=== PATIENT | female | born 2000 | race Caucasian/White ===

== ENCOUNTER 2024-05-04 23:58 | Outpatient (BNV) | payer MEDICAID, SELFPAY | END 2024-05-05 11:31 | PROVIDERS: Admitting Provider Psychiatry & Neurology Psychiatry; Visit Provider Radiology Diagnostic Radiology | DX: S09.90XA Unspecified injury of head, initial encounter (principal) | CPT/HCPCS: 70450 ==

== ENCOUNTER 2024-05-04 23:58 | Inpatient (IN) | payer OTHER, SELFPAY ==
--- NOTE | ~2024-05-04 | CT_ITS ---
EXAMINATION: CT HEAD WITHOUT CONTRAST CLINICAL INFORMATION: recent concussion reported COMPARISON: None available. TECHNIQUE: Contiguous axial imaging was performed from the skull base to vertex without intravenous administration of contrast. This CT examination was performed using dose optimization techniques as appropriate, variously including the following: *Automated exposure control *Adjustment of mA and/or kV according to patient size (this includes techniques or standardized protocols for targeted exams where dose is matched to indication/reason for exam; i.e. extremities or head) *Use of iterative reconstruction technique DLP: 674 mGy-cm FINDINGS: No acute intracranial hemorrhage, mass effect, midline shift, hydrocephalus or herniation. Bernardo-white matter differentiation is normal. Posterior cranial fossa contents demonstrated no acute intracranial hemorrhage. Sellar/suprasellar region demonstrated no gross masses or hemorrhage. No hematoma is in the intraconal or extraconal compartments of the orbits. Traumatic deformities likely old in the nasal bones. Polypoid mucosal thickening, right maxillary sinus. Mucosal thickening, right ethmoid cells. Tympanic cavities and mastoid cells are aerated. The bony calvarium is intact and There is a 9 mm low-density nodule measuring 12 Hounsfield units just peripheral to the right parotid gland and inferior to the right ear. CT/CT head/brain wo IV con IMPRESSION: No acute intracranial hemorrhage or acute brain abnormality. Traumatic deformities nasal bones likely old. Probable small sebaceous cyst, right parotid compartment. . Electronically signed by: Dagoberto Ku MD 05/05/2024 12:06 PM EDT
[2024-05-05 00:30] VITALS: BP 170/69; PULSE 95; RESP 20; TEMP 37.7; O2SAT 97
[2024-05-05 01:27] VITALS: BMI 29.8
--- NOTE | 2024-05-05 06:14 | PC.ADMIT ---
Lisandra was admitted to at 0015, as a CV on 15 minute checks. She arrive via stretcher but is independent when walking. Her skin check revealed a superficial closed cut/scratch on her left middle finger. She has right hand soreness, which she thinks is due to pounding on something, I don't know, I blacked out. She reports generalized pruritis but states this may be because I haven't showered. This writer technical publications observed no rash or redness. She is admitted as having adjustment disorder mixed with anxiety and depression. She is homeless at this time. She was taken to the hospital by police after threatening someone with a stick, and making paranoid statements. She is disorganized with pressured, excessive, tangential speech. She continues to be paranoid, stating that someone has been stalking her since I was in [place]. She reports short binge of drinking, ending 05/03/2024. She is not showing signs of alcohol withdrawal. Her toxicology screen was positive for Benzodiazepines and THC. She reports she had ativan at the [facility]. She smokes up to a pack a day, but wants to quit and has not smoked since 05/03/24. She is willing to utilize NRT. She is willing to take the flu vaccine. She has no known allergies. She denies SI, HI, AVH, but appears highly anxious and depressed; she is weepy at times. She stated I just can't keep going like this. I really need help and I need someplace to stay.
--- NOTE | 2024-05-05 07:22 | PHA.MEDREC ---
Pharmacy Consult ? Medication Reconciliation Pharmacy has completed the medication reconciliation. Reviewed med rec done by nursing, there are no pharmacy claims, matching no home meds reported.
[2024-05-05 08:00] VITALS: BP 137/62; PULSE 67; RESP 16; TEMP 36.6; O2SAT 98
--- NOTE | 2024-05-05 09:21 | HO.PM.IMCN ---
History of Present Illness Data of Consult Service Date: 05/05/24 Requesting physician: Kris Carrillo Primary Care Provider: Unknown Physician HPI Reason for consult: medical H&P 23 year old female without any significant past medical history admitted to adult psychiatry from [facility] with consult placed to hospitalist service for medical H&P. The patient is difficult to ascertain history from as speech is pressured, disorganized and tangential speech and fixated on something medical being the cause of her mental status. She is concerned about a brain tumor and diabetes primarily. She reports binge drinking and reports having 10 nips and blacking out. She wants to know why she blacked out. Again concerned about diabetes or brain tumor. Report has family history of brain tumor in her uncle. She reports elevated blood pressures when she is very stressed with associated headaches and vision changes, unable to elaborate. Currently reports what seems consistent with a tension headache. She states she often gets headaches in the R parietal region. She feels agitated. She feels like she has diabetes because when she is finished eating she feels dizzy. Denies other positional dizziness. Unable to fully elicit reliable ROS secondary to patient's mental status however theses seem to be her primary concerns. While in the ED, VSS. Hematology studies significant for WBC 11.8 but no other significant abnormalities. Renal function normal, electrolyte levels normal. Glucose slightly elevated 106 but was not performed fasting. Liver function tests within normal limits. Ethyl alcohol level undetectable. Urine test negative. Urine tox screen positive for benzodiazepines and cannabinoids. EKG did show sinus rhythm with sinus arrhythmia shortened MS interval of 102 ms. HR 70. She did have head ct performed without acute abnormality. There is a probable small sebaceous cyst of the parotid gland. [facility] Medical History (Updated 05/05/24 @ 17:47 by CHANTELL Lynn) Cyst of right parotid gland Social History Household Members: None Housing: Homeless Do you presently have visiting nurse or other home services: No Patient Tobacco Use Status: Former Tobacco user Tobacco use type: Cigarette Cigarettes Per Day: 10 Smoked in Last 30 Days: Yes e-Cigarette/Vaping Use: Former Use Patient Interested in Nicotine Replacement: Yes Patient Given Instructions on How to Stop Smoking: Yes Date Education Initiated: 05/05/24 Second Hand Smoke Exposure: Yes Use of substances other than those prescribed or required for medical reasons: Yes Substance Use Type: Marijuana Substance Use Frequency: Weekly Last Used Substance: Unknown Currently Displaying Signs/Symptoms of Drug Intoxication Withdrawal: No Any prior treatment program specific to substance use: No Have you been hit, kicked, punched, or otherwise hurt by someone within the past year? If so, by whom?: No Do you feel safe in your current relationship?: No Is there a partner from a previous relationship who is making you feel unsafe now?: No Advance Directives: No Advance Directives Information Provided: Yes Do you have a plan to hurt others: No Plan Recently lost weight without trying: Unsure Patient : No : No Poor oral hygiene: No Meds Allergies Allergy/AdvReac Type Severity Reaction Status Date / Time No Known Allergies Allergy Verified 05/05/24 01:23 Active Medications: Current Medications Acetaminophen (Acetaminophen 325 Mg Tablet) 650 mg PO Q6H PRN PRN Reason: Headache/Pain, Scale 1-10 Al Hydroxide/Mg Hydroxide (Magnesium Hydrox/Alum Hydrox 30 Ml Oral.Susp) 30 ml PO Q6H PRN PRN Reason: Heartburn/Nausea Hydroxyzine HCl (Hydroxyzine Hcl 25 Mg Tablet) 25 mg PO Q6H PRN PRN Reason: mild anxiety Lorazepam (Lorazepam 1 Mg Tablet) 1 mg PO Q2H PRN PRN Reason: CIWA 8-11 Lorazepam (Lorazepam 1 Mg Tablet) 2 mg PO Q2H PRN PRN Reason: CIWA 12-15 Lorazepam (Lorazepam 1 Mg Tablet) 3 mg PO Q2H PRN PRN Reason: CIWA > 15, and call Magnesium Hydroxide (Milk Of Magnesia 30 Ml Oral.Susp) 30 ml PO DAILY PRN PRN Reason: Constipation Nicotine Polacrilex (Nicotine Polacrilex 2 Mg Gum) 4 mg BUCCAL Q2H PRN PRN Reason: Nicotine Cravings Thiamine HCl (Thiamine Hcl 100 Mg Tablet) 100 mg PO DAILY PHILLIP Last Admin: 05/05/24 08:59 Dose: Not Given Trazodone HCl (Trazodone Hcl 50 Mg Tablet) 50 mg PO BEDTIME MRX1 PRN PRN Reason: Insomnia Home Medications ?Medication ?Instructions ?Recorded ?Confirmed ?Last Taken ?Type No Known Home Meds 05/05/24 05/05/24 Unknown History Physical Exam Vital Signs and Narrative: Vital Signs: Last Vital Signs Temp 99.9 F 05/05/24 00:30 Pulse 95 05/05/24 00:30 Resp 20 05/05/24 00:30 BP 170/69 H 05/05/24 00:30 Pulse Ox 97 05/05/24 00:30 O2 Del Method Room Air 05/05/24 00:30 BMI result Body Mass Index 14.7 Constitutional - Awake and Alert, No apparent distress Eyes - PERRLA, EOMI Neck - Pea sized mass overlying the right parotid gland Cardiovascular - S1S2, RRR, No edema Respiratory - Normal lung expansion, Normal respiratory effort, No respiratory distress, CTA bilaterally Gastrointestinal - NT / ND; +BS; No rebound or guarding Extremities - no calf tenderness bilaterally, no swelling Musculoskeletal - Normal inspection, normal ROM Skin - Warm/Dry Neurological - Alert & oriented x3, CN II-XII in tact, 5/5 strength BUE and BLE Psychological - disorganized/pressured speech, tangential Assessment and Plan (1) Routine medical exam: Status: Acute Plan 23 year old female without any significant past medical history admitted to adult psychiatry from [facility] with consult placed to hospitalist service for medical H&P. #Vivienne - plan per psychiatry #Elevated blood pressures -no diagnosis of htn. Likely r/t anxiety and agitation -Recommend monitoring bp and managing the above -would not recommend antihypertensive at this time #AUD/Binge drinking -monitor on ciwa -discussed reasons for black out but she continues to perseverant on why it occurred #Headache -tension type. Tylenol prn Patient is fixated on medical causes of mental status, specifically a brain tumor and diabetes -check hgb a1c. Attempted to reassure patient, doubt she has diabetes -Head CT ordered by psychiatry showing parotid gland cyst. This is most likely benign in nature and would not be affected current mental state. Patient can follow up outpt or can pursue ultrasound vs MR (ultrasound would be preferred over MR but either are appropriate) if she has no outpt follow up. There are no brain tumors on ct. Findings discussed with patient. Recommend re-weighing patient. Patient's body habitus is not consistent wtih BMI 14.7. If this is accurate, recommend nutrition consult Thank you for allowing me to participate in this consult. Signing off at this time. Please do not hesitate to call for further questions or for any acute medical issues.
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
[2024-05-05 13:14] LABS: HCG Quantitative < 2 mIU/mL
[2024-05-05] MEDS: LORazepam 1 MG TABLET PO (15:14)
--- NOTE | 2024-05-05 15:52 | MHC.RECOVRN ---
Received Addiction Medicine consult for alcohol use disorder. Chart reviewed. Awaiting provider documentation. Will see pt 05/06. Gabi Haynes APRN, aware.
[2024-05-05 20:00] VITALS: BP 141/87; PULSE 63; TEMP 36.7; O2SAT 98
[2024-05-06 07:54] VITALS: BP 119/58; PULSE 102; TEMP 36.8; O2SAT 98
[2024-05-06 08:25] LABS: Estimated Average Glucose 105 mg/dL; Hemoglobin A1c % 5.3 % (<6.0)
[2024-05-06 08:42] LABS: Cholesterol 153 mg/dL (<200); HDL Cholesterol 57 mg/dL (>40); LDL Cholesterol Calculated 83 mg/dL (<100); Triglycerides 69 mg/dL (<150)
[2024-05-06 09:00] LABS: Free T4 (Free Thyroxine) 0.88 ng/dL (0.71-1.85); Thyroid Stimulating Hormone 1.59 uIU/mL (0.32-4.0)
[2024-05-06 09:02] LABS: Folate 9.6 ng/mL (> or = 4.0); Vitamin B12 424 pg/mL (200-900)
--- NOTE | 2024-05-06 09:57 | HO.PSYCHPN ---
Subjective Subjective Date of Service: 05/06/24 Reason For Visit: Adjustment Disorder, Mixed with anxiety & depress Subjective Notes: Conditional Voluntary Healthcare Proxy: No Guardianship: No Medical Problems Affecting Mental Status: No Interim History: Review of diagnostics thus far. Hospitalist team met with pt to review parotid cyst. Pt presented this information and appeart to understand. Discussed medication for clarification of thoughts and mood, rationale, how it may be of benefit. Pt is apprehensive, but agrees to a Risperdal trial. She declines a mood stabilizer trial. She states that the use of the Ouija Board in 2019 caused cramps, spotting. I would do better on a uterine blood thinner and a uterine cleanse. Gave mother's name and number to contact, Marta Head [phone]. Discussed failed trials of Gabapentin and Abilify. Medication Compliance: No Side effects from medications: No Attending Groups: Yes Review of Systems Review of Systems menses-cramping Mental Status Exam Mental Status Exam Patient Appearance: Fatigued Patient Orientation: Person, Place and Situation Level of Consciousness: Alert Patient Behavior: Talkative and Good Eye Contact Mood Description: Anxious and Apprehensive Affect Description: Anxious and Apprehensive Patient Cognition Impaired: No Ability to Follow Directions: Good Speech Pattern: Spontaneous Speech Memory Description: Episodic Impaired Delusions: Paranoid Ideation and Present Thought Process: Distracted Thought Content: positive for Circumstantial, positive for Perseveration, positive for Preoccupation and positive for Loose Associations Depressive Symptoms: Increased Anxiety Abnormal Motor Activity Signs and Symptoms: Restlessness Judgement: Poor Diagnostics Vital Signs (24Hr): Vital Signs - 24 hr 05/05/24 20:00 05/06/24 07:54 Temperature 98.1 F 98.2 F Pulse Rate 63 102 H Blood Pressure 141/87 H 119/58 L Pulse Oximetry 98 98 Oxygen Delivery Method Room Air Room Air BMI result Body Mass Index 14.7 Labs Labs: Laboratory Results - last 48 hr 05/05/24 05/06/24 12:35 07:26 Estimat Average Glucose 105 Hemoglobin A1c % 5.3 Triglycerides 69 Cholesterol 153 LDL Cholesterol, Calc 83 HDL Cholesterol 57 Vitamin B12 424 Folate 9.6 TSH 1.59 Free T4 0.88 Beta HCG, Quant < 2 Imaging Radiology Impressions: ITS Impressions Head CT 05/05/24 11:31 IMPRESSION: No acute intracranial hemorrhage or acute brain abnormality. Traumatic deformities nasal bones likely old. Probable small sebaceous cyst, right parotid compartment. . Electronically signed by: Dagoberto Ku MD 05/05/2024 12:06 PM EDT RP Medications Medications Current Medications Acetaminophen (Acetaminophen 325 Mg Tablet) 650 mg PO Q6H PRN PRN Reason: Headache/Pain, Scale 1-10 Al Hydroxide/Mg Hydroxide (Magnesium Hydrox/Alum Hydrox 30 Ml Oral.Susp) 30 ml PO Q6H PRN PRN Reason: Heartburn/Nausea Hydroxyzine HCl (Hydroxyzine Hcl 25 Mg Tablet) 25 mg PO Q6H PRN PRN Reason: mild anxiety Lorazepam (Lorazepam 1 Mg Tablet) 1 mg PO Q2H PRN PRN Reason: CIWA 8-11 Last Admin: 05/05/24 15:14 Dose: 1 mg Lorazepam (Lorazepam 1 Mg Tablet) 2 mg PO Q2H PRN PRN Reason: CIWA 12-15 Lorazepam (Lorazepam 1 Mg Tablet) 3 mg PO Q2H PRN PRN Reason: CIWA > 15, and call Magnesium Hydroxide (Milk Of Magnesia 30 Ml Oral.Susp) 30 ml PO DAILY PRN PRN Reason: Constipation Nicotine Polacrilex (Nicotine Polacrilex 2 Mg Gum) 4 mg BUCCAL Q2H PRN PRN Reason: Nicotine Cravings Olanzapine (Olanzapine 5 Mg Tablet) 5 mg PO Q4H PRN PRN Reason: agitation Thiamine HCl (Thiamine Hcl 100 Mg Tablet) 100 mg PO DAILY PHILLIP Last Admin: 05/05/24 08:59 Dose: Not Given Trazodone HCl (Trazodone Hcl 50 Mg Tablet) 50 mg PO BEDTIME MRX1 PRN PRN Reason: Insomnia Allergies Allergies Allergy/AdvReac Type Severity Reaction Status Date / Time No Known Allergies Allergy Verified 05/05/24 01:23 Assessment & Plan Assessment & Plan (1) Psychosis: Status: Acute Code(s): F29 - Unspecified psychosis not due to a substance or known physiological condition (2) Alcohol abuse: Status: Acute Code(s): F10.10 - Alcohol abuse, uncomplicated Plan Admit, CV, 15 minute checks Diagnostics to evaluate current sx. Declines meds at this time. Will continue to address Collateral Contact Encourage milieu involvement Discharge planning. 05/06: Risperdal 1 mg bid and prn Reason for continued inpatient stay Substantial Risk for: rapid decompensation Time Spent With Patient Time: Total time managing care of this patient today ____ minutes.
[2024-05-06] MEDS: Thiamine HCL 100 MG TABLET PO (09:58)
--- NOTE | 2024-05-06 13:28 | MHC.RECOVRN ---
AUDIT-C Brief Intervention Pt had positive screen for unhealthy alcohol use on admission. Attempted to meet with pt to discuss alcohol use and offer resources, pt declined.
[2024-05-06 19:50] VITALS: BP 118/60; PULSE 82; RESP 18; TEMP 37.1; O2SAT 98
[2024-05-06] MEDS: risperiDONE 1 MG TABLET PO (20:46)
[2024-05-06] MEDS: LORazepam 1 MG TABLET PO (20:46)
[2024-05-07 07:00] VITALS: BMI 29.9
[2024-05-07 08:26] VITALS: BP 110/59; PULSE 55; RESP 18; TEMP 36.3; O2SAT 96
[2024-05-07] MEDS: risperiDONE 1 MG TABLET PO ×2 (09:00→21:55)
[2024-05-07] MEDS: Thiamine HCL 100 MG TABLET PO (09:00)
[2024-05-07] MEDS: Acetaminophen 325 MG TABLET 650 MG PO (09:04)
--- NOTE | 2024-05-07 10:15 | P.PNPSI_ITS ---
Subjective Subjective Date of Service: 05/07/24 Reason For Visit: Adjustment Disorder, Mixed with anxiety & depress Subjective Notes: Conditional Voluntary Healthcare Proxy: No Guardianship: No Medical Problems Affecting Mental Status: No Interim History: Some compliance with medications. EEG team refused to do the test as pt has evangelista Reports meds make her tired and groggy. Discussed gangs, higher spirits and porn stars coming into her life. Tangential, some clarity with a few med doses. Encouarged to utilize milieu and treatment. Medication Compliance: Intermittent Side effects from medications: Yes (feelin sedation) Attending Groups: Yes Review of Systems Acute medical concerns: No Review of Systems Review of Systems menstrual cramping Mental Status Exam Mental Status Exam Patient Appearance: Fatigued Patient Orientation: Person, Place and Situation Level of Consciousness: Alert Patient Behavior: Talkative and Good Eye Contact Mood Description: Anxious and Apprehensive Affect Description: Anxious and Apprehensive Patient Cognition Impaired: No Ability to Follow Directions: Good Speech Pattern: Spontaneous Speech Memory Description: Episodic Impaired Delusions: Paranoid Ideation and Present Thought Process: Distracted Thought Content: positive for Circumstantial, positive for Perseveration, positive for Preoccupation and positive for Loose Associations Depressive Symptoms: Increased Anxiety Abnormal Motor Activity Signs and Symptoms: Restlessness Judgement: Poor Diagnostics Vital Signs (24Hr): Vital Signs - 24 hr 05/06/24 19:50 05/07/24 08:26 Temperature 98.7 F 97.4 F Pulse Rate 82 55 Respiratory Rate 18 18 Blood Pressure 118/60 110/59 L Pulse Oximetry 98 96 Oxygen Delivery Method Room Air Room Air BMI result Body Mass Index 14.7 Labs Labs: Laboratory Results - last 48 hr 05/05/24 05/06/24 12:35 07:26 Estimat Average Glucose 105 Hemoglobin A1c % 5.3 Triglycerides 69 Cholesterol 153 LDL Cholesterol, Calc 83 HDL Cholesterol 57 Vitamin B12 424 Folate 9.6 TSH 1.59 Free T4 0.88 Beta HCG, Quant < 2 Imaging Radiology Impressions: ITS Impressions Head CT 05/05/24 11:31 IMPRESSION: No acute intracranial hemorrhage or acute brain abnormality. Traumatic deformities nasal bones likely old. Probable small sebaceous cyst, right parotid compartment. . Electronically signed by: Dagoberto Ku MD 05/05/2024 12:06 PM EDT Medications Medications Current Medications Acetaminophen (Acetaminophen 325 Mg Tablet) 650 mg PO Q6H PRN PRN Reason: Headache/Pain, Scale 1-10 Last Admin: 05/07/24 09:04 Dose: 650 mg Al Hydroxide/Mg Hydroxide (Magnesium Hydrox/Alum Hydrox 30 Ml Oral.Susp) 30 ml PO Q6H PRN PRN Reason: Heartburn/Nausea Hydroxyzine HCl (Hydroxyzine Hcl 25 Mg Tablet) 25 mg PO Q6H PRN PRN Reason: mild anxiety Lorazepam (Lorazepam 1 Mg Tablet) 1 mg PO Q2H PRN PRN Reason: CIWA 8-11 Last Admin: 05/06/24 20:46 Dose: 1 mg Lorazepam (Lorazepam 1 Mg Tablet) 2 mg PO Q2H PRN PRN Reason: CIWA 12-15 Lorazepam (Lorazepam 1 Mg Tablet) 3 mg PO Q2H PRN PRN Reason: CIWA > 15, and call Magnesium Hydroxide (Milk Of Magnesia 30 Ml Oral.Susp) 30 ml PO DAILY PRN PRN Reason: Constipation Nicotine Polacrilex (Nicotine Polacrilex 2 Mg Gum) 4 mg BUCCAL Q2H PRN PRN Reason: Nicotine Cravings Olanzapine (Olanzapine 5 Mg Tablet) 5 mg PO Q4H PRN PRN Reason: agitation Risperidone (Risperidone 1 Mg Tablet) 1 mg PO BID [facility] Last Admin: 05/07/24 09:00 Dose: 1 mg Thiamine HCl (Thiamine Hcl 100 Mg Tablet) 100 mg PO DAILY [facility] Last Admin: 05/07/24 09:00 Dose: 100 mg Trazodone HCl (Trazodone Hcl 50 Mg Tablet) 50 mg PO BEDTIME MRX1 PRN PRN Reason: Insomnia Allergies Allergies Allergy/AdvReac Type Severity Reaction Status Date / Time No Known Allergies Allergy Verified 05/05/24 01:23 Assessment & Plan Assessment & Plan (1) Psychosis: Status: Acute Code(s): F29 - Unspecified psychosis not due to a substance or known physiological condition (2) Alcohol abuse: Status: Acute Code(s): F10.10 - Alcohol abuse, uncomplicated Plan Admit, CV, 15 minute checks Diagnostics to evaluate current sx. Declines meds at this time. Will continue to address Collateral Contact Encourage milieu involvement Discharge planning. 05/07/24: Continue Risperdal Pt refuses a mood stabilizer at this time. Reason for continued inpatient stay Substantial Risk for: rapid decompensation Time Spent With Patient Time: Total time managing care of this patient today ____ minutes.
[2024-05-07 16:00] VITALS: BP 120/72; PULSE 70; RESP 18; TEMP 36.6; O2SAT 98
[2024-05-07 20:00] VITALS: BP 112/54; PULSE 69; TEMP 37; O2SAT 98
[2024-05-07] MEDS: hydrOXYzine HCL 25 MG TABLET PO (21:56)
[2024-05-08 08:00] VITALS: BP 107/57; PULSE 54; TEMP 36.5; O2SAT 98
[2024-05-08] MEDS: Thiamine HCL 100 MG TABLET PO (08:42)
[2024-05-08] MEDS: risperiDONE 1 MG TABLET PO ×2 (08:42→22:00)
[2024-05-08] MEDS: OLANZapine ODT 10 MG TAB.RAPDIS TRANSLINGU (11:57)
[2024-05-08] MEDS: hydrOXYzine HCL 25 MG TABLET PO (11:58)
[2024-05-08 13:40] VITALS: BP 116/59; PULSE 75
--- NOTE | 2024-05-08 15:12 | HO.PSYCHPN ---
Subjective Subjective Date of Service: 05/08/24 Reason For Visit: Adjustment Disorder, Mixed with anxiety & depress Subjective Notes: Conditional Voluntary and 3 Day (05/11) Healthcare Proxy: No Guardianship: No Medical Problems Affecting Mental Status: No Interim History: Labile, guarded, wanting DC on Saturday. Refuses to consider remaining in the hospital for further rx. Discussed mother not allowing her home due to being unmedicated and violent. The higher spirits control me . Reports a nightmare last night regarding father's health. Believes she is not being treated well here. You feed me, give me art projects and don't make me do hard work. You all are kind to me and ask me how I am doing. This is not reality on the outside, I want to leave and get a job. Medication Compliance: Yes Side effects from medications: Yes (feeling tired at times) Attending Groups: Intermittent Review of Systems Acute medical concerns: No Medical Review of Systems: unchanged Review of Systems Review of Systems menses Mental Status Exam Mental Status Exam Patient Appearance: Fatigued Patient Orientation: Person, Place and Situation Level of Consciousness: Alert Patient Behavior: Talkative and Good Eye Contact Mood Description: Anxious, Labile and Apprehensive Affect Description: Anxious, Labile and Apprehensive Patient Cognition Impaired: No Ability to Follow Directions: Good Speech Pattern: Spontaneous Speech Memory Description: Episodic Impaired Hallucinations: Auditory (spirits) and Visual (ouija board) Delusions: Paranoid Ideation and Present Thought Process: Distracted Thought Content: positive for Circumstantial, positive for Perseveration, positive for Preoccupation and positive for Loose Associations Depressive Symptoms: Increased Anxiety Abnormal Motor Activity Signs and Symptoms: Restlessness Judgement: Poor Diagnostics Vital Signs (24Hr): Vital Signs - 24 hr 05/07/24 16:00 05/07/24 20:00 05/08/24 08:00 Temperature 98 F 98.6 F 97.7 F Pulse Rate 70 69 54 Respiratory Rate 18 Blood Pressure 120/72 112/54 L 107/57 L Pulse Oximetry 98 98 98 Oxygen Delivery Method Room Air Room Air Room Air 05/08/24 13:40 Temperature Pulse Rate 75 Respiratory Rate Blood Pressure 116/59 L Pulse Oximetry Oxygen Delivery Method BMI result Body Mass Index 29.9 Imaging Radiology Impressions: ITS Impressions Head CT 05/05/24 11:31 IMPRESSION: No acute intracranial hemorrhage or acute brain abnormality. Traumatic deformities nasal bones likely old. Probable small sebaceous cyst, right parotid compartment. . Electronically signed by: Dagoberto Ku MD 05/05/2024 12:06 PM EDT RP Medications Medications Current Medications Acetaminophen (Acetaminophen 325 Mg Tablet) 650 mg PO Q6H PRN PRN Reason: Headache/Pain, Scale 1-10 Last Admin: 05/07/24 09:04 Dose: 650 mg Al Hydroxide/Mg Hydroxide (Magnesium Hydrox/Alum Hydrox 30 Ml Oral.Susp) 30 ml PO Q6H PRN PRN Reason: Heartburn/Nausea Hydroxyzine HCl (Hydroxyzine Hcl 25 Mg Tablet) 25 mg PO Q6H PRN PRN Reason: mild anxiety Last Admin: 05/08/24 11:58 Dose: 25 mg Ibuprofen (Ibuprofen 400 Mg Tablet) 400 mg PO Q4H PRN PRN Reason: Menstrual Cramps Lorazepam (Lorazepam 1 Mg Tablet) 1 mg PO Q2H PRN PRN Reason: CIWA 8-11 Last Admin: 05/06/24 20:46 Dose: 1 mg Lorazepam (Lorazepam 1 Mg Tablet) 2 mg PO Q2H PRN PRN Reason: CIWA 12-15 Lorazepam (Lorazepam 1 Mg Tablet) 3 mg PO Q2H PRN PRN Reason: CIWA > 15, and call Magnesium Hydroxide (Milk Of Magnesia 30 Ml Oral.Susp) 30 ml PO DAILY PRN PRN Reason: Constipation Nicotine Polacrilex (Nicotine Polacrilex 2 Mg Gum) 4 mg BUCCAL Q2H PRN PRN Reason: Nicotine Cravings Olanzapine (Olanzapine Odt 10 Mg Tab.Rapdis) 10 mg TRANSLINGU BID PRN PRN Reason: agitation, violence, psychosis Last Admin: 05/08/24 11:57 Dose: 10 mg Risperidone (Risperidone 1 Mg Tablet) 1 mg PO BID [facility] Last Admin: 05/08/24 08:42 Dose: 1 mg Thiamine HCl (Thiamine Hcl 100 Mg Tablet) 100 mg PO DAILY [facility] Last Admin: 05/08/24 08:42 Dose: 100 mg Trazodone HCl (Trazodone Hcl 50 Mg Tablet) 50 mg PO BEDTIME MRX1 PRN PRN Reason: Insomnia Allergies Allergies Allergy/AdvReac Type Severity Reaction Status Date / Time No Known Allergies Allergy Verified 05/05/24 01:23 Assessment & Plan Assessment & Plan (1) Psychosis: Status: Acute Code(s): F29 - Unspecified psychosis not due to a substance or known physiological condition (2) Alcohol abuse: Status: Acute Code(s): F10.10 - Alcohol abuse, uncomplicated Plan Admit, CV, 15 minute checks Diagnostics to evaluate current sx. Declines meds at this time. Will continue to address Collateral Contact Encourage milieu involvement Discharge planning. 05/07/24: Continue Risperdal Pt refuses a mood stabilizer at this time. 05/08: Continue Risperdal Pt continues to refuse a mood stabilizer TDN 05/11, probable Section 7 Reason for continued inpatient stay Substantial Risk for: rapid decompensation Time Spent With Patient Time: Total time managing care of this patient today ____ minutes.
[2024-05-08 20:00] VITALS: BP 107/64; PULSE 63; TEMP 36.8; O2SAT 100
--- NOTE | 2024-05-09 08:27 | P.PNPSI_ITS ---
Subjective Subjective Date of Service: 05/09/24 Reason For Visit: Adjustment Disorder, Mixed with anxiety & depress Subjective Notes: Conditional Voluntary Healthcare Proxy: No Guardianship: No Medical Problems Affecting Mental Status: No Interim History: 23 yo reports restlessness in arms- not sure what it is from, continues to talk tangential and be restless physically- nursnign reports ongoing paranoia and anxiety , she says her nervous system is activated - reports sleep in day annoys her- but thinks she sleeps at night- nuring reported poor sleep, nonsensical speech- taking risperidone- Medication Compliance: Yes Side effects from medications: Yes (? restless arms) Attending Groups: Intermittent Review of Systems Acute medical concerns: No Review of Systems: ?movements in her arms, restlessness Mental Status Exam Mental Status Exam Patient Appearance: Unkempt Patient Orientation: Person, Place, Time and Situation Level of Consciousness: Awake and Restless Patient Behavior: Talkative, Cooperative and Poor Eye Contact Mood Description: Apprehensive Affect Description: Blunted Patient Cognition Impaired: No Ability to Follow Directions: Fair Speech Pattern: Rambling Hallucinations: None Thought Process: Distracted Thought Content: positive for Disorganized Depressive Symptoms: Muscle Tension Abnormal Motor Activity Signs and Symptoms: Restlessness Judgement: Poor Diagnostics Vital Signs (24Hr): Vital Signs - 24 hr 05/08/24 13:40 05/08/24 20:00 Temperature 98.2 F Pulse Rate 75 63 Blood Pressure 116/59 L 107/64 Pulse Oximetry 100 Oxygen Delivery Method Room Air BMI result Body Mass Index 29.9 Imaging Radiology Impressions: ITS Impressions Head CT 05/05/24 11:31 IMPRESSION: No acute intracranial hemorrhage or acute brain abnormality. Traumatic deformities nasal bones likely old. Probable small sebaceous cyst, right parotid compartment. . Electronically signed by: Dagoberto Ku MD 05/05/2024 12:06 PM EDT RP Medications Medications Current Medications Acetaminophen (Acetaminophen 325 Mg Tablet) 650 mg PO Q6H PRN PRN Reason: Headache/Pain, Scale 1-10 Last Admin: 05/07/24 09:04 Dose: 650 mg Al Hydroxide/Mg Hydroxide (Magnesium Hydrox/Alum Hydrox 30 Ml Oral.Susp) 30 ml PO Q6H PRN PRN Reason: Heartburn/Nausea Hydroxyzine HCl (Hydroxyzine Hcl 25 Mg Tablet) 25 mg PO Q6H PRN PRN Reason: mild anxiety Last Admin: 05/08/24 11:58 Dose: 25 mg Ibuprofen (Ibuprofen 400 Mg Tablet) 400 mg PO Q4H PRN PRN Reason: Menstrual Cramps Lorazepam (Lorazepam 1 Mg Tablet) 1 mg PO Q2H PRN PRN Reason: CIWA 8-11 Last Admin: 05/06/24 20:46 Dose: 1 mg Lorazepam (Lorazepam 1 Mg Tablet) 2 mg PO Q2H PRN PRN Reason: CIWA 12-15 Lorazepam (Lorazepam 1 Mg Tablet) 3 mg PO Q2H PRN PRN Reason: CIWA > 15, and call Magnesium Hydroxide (Milk Of Magnesia 30 Ml Oral.Susp) 30 ml PO DAILY PRN PRN Reason: Constipation Nicotine Polacrilex (Nicotine Polacrilex 2 Mg Gum) 4 mg BUCCAL Q2H PRN PRN Reason: Nicotine Cravings Olanzapine (Olanzapine Odt 10 Mg Tab.Rapdis) 10 mg TRANSLINGU BID PRN PRN Reason: agitation, violence, psychosis Last Admin: 05/08/24 11:57 Dose: 10 mg Risperidone (Risperidone 1 Mg Tablet) 1 mg PO BID [facility] Last Admin: 05/08/24 22:00 Dose: 1 mg Thiamine HCl (Thiamine Hcl 100 Mg Tablet) 100 mg PO DAILY [facility] Last Admin: 05/08/24 08:42 Dose: 100 mg Trazodone HCl (Trazodone Hcl 50 Mg Tablet) 50 mg PO BEDTIME MRX1 PRN PRN Reason: Insomnia Allergies Allergies Allergy/AdvReac Type Severity Reaction Status Date / Time No Known Allergies Allergy Verified 05/05/24 01:23 Assessment & Plan Assessment & Plan (1) Psychosis: Status: Acute Code(s): F29 - Unspecified psychosis not due to a substance or known physiological condition (2) Alcohol abuse: Status: Acute Code(s): F10.10 - Alcohol abuse, uncomplicated Plan Admit, CV, 15 minute checks Diagnostics to evaluate current sx. Declines meds at this time. Will continue to address Collateral Contact Encourage milieu involvement Discharge planning. 05/07/24: Continue Risperdal Pt refuses a mood stabilizer at this time. 05/08: Continue Risperdal Pt continues to refuse a mood stabilizer TDN 05/11, probable Section 7 05/09- disorganized thoughts hard to follow, wrote for cogentin for complaints ? eps- Patient educated on: medication risk/benefits Informed Consent: further education needed Reason for continued inpatient stay Substantial Risk for: rapid decompensation Time Spent With Patient Time: Total time managing care of this patient today ____ minutes.
[2024-05-09 08:31] VITALS: BP 110/62; PULSE 57; RESP 16; TEMP 36.5; O2SAT 98
[2024-05-09] MEDS: Thiamine HCL 100 MG TABLET PO (09:59)
[2024-05-09] MEDS: risperiDONE 1 MG TABLET PO ×2 (09:59→21:31)
[2024-05-09 20:00] VITALS: BP 133/74; PULSE 84; TEMP 36.5; O2SAT 99
[2024-05-09] MEDS: hydrOXYzine HCL 25 MG TABLET PO (21:36)
[2024-05-10 08:00] VITALS: BP 115/62; PULSE 60; RESP 16; TEMP 36.8; O2SAT 99
[2024-05-10] MEDS: risperiDONE 1 MG TABLET PO (08:30)
[2024-05-10] MEDS: Thiamine HCL 100 MG TABLET PO (08:30)
--- NOTE | 2024-05-10 11:37 | P.PNPSI_ITS ---
Subjective Subjective Date of Service: 05/10/24 Reason For Visit: Adjustment Disorder, Mixed with anxiety & depress Subjective Notes: Riddle Warning, Conditional Voluntary and 3 Day Healthcare Proxy: No Guardianship: No Medical Problems Affecting Mental Status: No Interim History: 23 yo became quite distressed after giving her the riddle warning with her baseline mental state she really didn't understand and thought I was accusing her or blaming her- she had been hoping to leave and just stay on risperidone but now wants to change to seroquel which her mother will recognize the name of- Her mother has refused her to see her sister until she is medicated- her father too- but he can't help her as he is homeless, jobless, Pt has disorganized thought process and , says it was a joke when she told nursing she was fearful of deadpool raping her and her sister Medication Compliance: Yes Side effects from medications: Yes (tiredness in day, now denies and eps- ) Attending Groups: Intermittent Review of Systems Acute medical concerns: No Medical Review of Systems: unchanged Mental Status Exam Mental Status Exam Patient Appearance: Unkempt Patient Orientation: Person, Place, Time and Situation Level of Consciousness: Awake Patient Behavior: Guarded, Anxious, Confused and Good Eye Contact Mood Description: Apprehensive Affect Description: Labile Patient Cognition Impaired: No Ability to Follow Directions: Fair Speech Pattern: Clear and Rambling Hallucinations: None Delusions: Paranoid Ideation Thought Process: Distracted Thought Content: positive for Disorganized Depressive Symptoms: Increased Anxiety, Diff. Making Decisions, Increased Irritability and Sleeping More Than Usual (pt reports) Abnormal Motor Activity Signs and Symptoms: Restlessness Judgement: Poor Diagnostics Vital Signs (24Hr): Vital Signs - 24 hr 05/09/24 20:00 05/10/24 08:00 Temperature 97.7 F 98.2 F Pulse Rate 84 60 Respiratory Rate 16 Blood Pressure 133/74 115/62 Pulse Oximetry 99 99 Oxygen Delivery Method Room Air Room Air BMI result Body Mass Index 29.9 Imaging Radiology Impressions: ITS Impressions Head CT 05/05/24 11:31 IMPRESSION: No acute intracranial hemorrhage or acute brain abnormality. Traumatic deformities nasal bones likely old. Probable small sebaceous cyst, right parotid compartment. . Electronically signed by: Dagoberto Ku MD 05/05/2024 12:06 PM EDT Medications Medications Current Medications Acetaminophen (Acetaminophen 325 Mg Tablet) 650 mg PO Q6H PRN PRN Reason: Headache/Pain, Scale 1-10 Last Admin: 05/07/24 09:04 Dose: 650 mg Al Hydroxide/Mg Hydroxide (Magnesium Hydrox/Alum Hydrox 30 Ml Oral.Susp) 30 ml PO Q6H PRN PRN Reason: Heartburn/Nausea Benztropine Mesylate (Benztropine Mesylate 0.5 Mg Tablet) 0.5 mg PO TID PRN PRN Reason: Extrapyramidal Effects Hydroxyzine HCl (Hydroxyzine Hcl 25 Mg Tablet) 25 mg PO Q6H PRN PRN Reason: mild anxiety Last Admin: 05/09/24 21:36 Dose: 25 mg Ibuprofen (Ibuprofen 400 Mg Tablet) 400 mg PO Q4H PRN PRN Reason: Menstrual Cramps Magnesium Hydroxide (Milk Of Magnesia 30 Ml Oral.Susp) 30 ml PO DAILY PRN PRN Reason: Constipation Nicotine Polacrilex (Nicotine Polacrilex 2 Mg Gum) 4 mg BUCCAL Q2H PRN PRN Reason: Nicotine Cravings Olanzapine (Olanzapine Odt 10 Mg Tab.Rapdis) 10 mg TRANSLINGU BID PRN PRN Reason: agitation, violence, psychosis Last Admin: 05/08/24 11:57 Dose: 10 mg Risperidone (Risperidone 1 Mg Tablet) 1 mg PO BID [facility] Last Admin: 05/10/24 08:30 Dose: 1 mg Thiamine HCl (Thiamine Hcl 100 Mg Tablet) 100 mg PO DAILY [facility] Last Admin: 05/10/24 08:30 Dose: 100 mg Trazodone HCl (Trazodone Hcl 50 Mg Tablet) 50 mg PO BEDTIME MRX1 PRN PRN Reason: Insomnia Allergies Allergies Allergy/AdvReac Type Severity Reaction Status Date / Time No Known Allergies Allergy Verified 05/05/24 01:23 Assessment & Plan Assessment & Plan (1) Psychosis: Status: Acute Code(s): F29 - Unspecified psychosis not due to a substance or known physiological condition (2) Alcohol abuse: Status: Acute Code(s): F10.10 - Alcohol abuse, uncomplicated Plan Admit, CV, 15 minute checks Diagnostics to evaluate current sx. Declines meds at this time. Will continue to address Collateral Contact Encourage milieu involvement Discharge planning. 05/07/24: Continue Risperdal Pt refuses a mood stabilizer at this time. 05/08: Continue Risperdal Pt continues to refuse a mood stabilizer TDN 05/11, probable Section 7 05/09- disorganized thoughts hard to follow, wrote for saul for complaints ? eps- 05/10 - disorganized thoughts, mildly labile affect, confused- upset- does not appear stable for dc- prn seroquel written though she has prn of olanzapine - wonder about inc risperidone but couldn't have discussion of that as she was so thrown off by riddle warning and idea of court - Patient educated on: medication risk/benefits and other Informed Consent: further education needed Reason for continued inpatient stay Substantial Risk for: inability to function and rapid decompensation Time Spent With Patient Time: Total time managing care of this patient today ____ minutes.
[2024-05-10 19:35] VITALS: BP 129/62; PULSE 82; TEMP 36.9; O2SAT 98
[2024-05-10] MEDS: hydrOXYzine HCL 25 MG TABLET PO (20:26)
[2024-05-10] MEDS: risperiDONE 0.5 MG TABLET 1.5 MG PO (20:26)
[2024-05-10] MEDS: LORazepam 1 MG TABLET PO (20:27)
[2024-05-11 07:55] VITALS: BP 103/53; PULSE 64; RESP 18; TEMP 36.1; O2SAT 97
[2024-05-11] MEDS: Thiamine HCL 100 MG TABLET PO (08:53)
[2024-05-11] MEDS: risperiDONE 0.5 MG TABLET 1.5 MG PO ×2 (08:53→21:43)
--- NOTE | 2024-05-11 13:15 | P.PNPSI_ITS ---
Subjective Subjective Date of Service: 05/11/24 Reason For Visit: Adjustment Disorder, Mixed with anxiety & depress Subjective Notes: 3 Day Healthcare Proxy: No Guardianship: No Medical Problems Affecting Mental Status: No Interim History: TDN to 05/13. Taking medicine, refuses titration or any changes to regime as she does not agree with medicine but wants to show family she is compliant with treatment. Engaged in reading. Continues with some disorganized, delusional content. Medication Compliance: Yes Side effects from medications: No Attending Groups: Intermittent Review of Systems Acute medical concerns: No Review of Systems Review of Systems Denies, except for sedative effect, however she believes this is from the milieu. Mental Status Exam Mental Status Exam Patient Appearance: Disheveled Patient Orientation: Person, Place and Situation Level of Consciousness: Alert Patient Behavior: Talkative and Good Eye Contact Mood Description: Constricted Affect Description: Constricted Ability to Follow Directions: Good Speech Pattern: Spontaneous Speech Memory Description: Episodic Impaired Delusions: Paranoid Ideation, Present and Ideas of Reference Perceptual Disturbances: Derealization Thought Process: Illogical and Distracted Thought Content: positive for Flight of Ideas, positive for Circumstantial, positive for Perseveration, positive for Preoccupation, positive for Tangential, positive for Suicidal Ideation (denies) and positive for Homicidal Ideation (denies) Depressive Symptoms: Increased Anxiety and Thoughts of /Suicide (denies) Abnormal Motor Activity Signs and Symptoms: Restlessness Judgement: Poor Diagnostics Vital Signs (24Hr): Vital Signs - 24 hr 05/10/24 19:35 05/11/24 07:55 Temperature 98.4 F 96.9 F Pulse Rate 82 64 Respiratory Rate 18 Blood Pressure 129/62 103/53 L Pulse Oximetry 98 97 Oxygen Delivery Method Room Air Room Air BMI result Body Mass Index 29.9 Imaging Radiology Impressions: ITS Impressions Head CT 05/05/24 11:31 IMPRESSION: No acute intracranial hemorrhage or acute brain abnormality. Traumatic deformities nasal bones likely old. Probable small sebaceous cyst, right parotid compartment. . Electronically signed by: Dagoberto Ku MD 05/05/2024 12:06 PM EDT Medications Medications Current Medications Acetaminophen (Acetaminophen 325 Mg Tablet) 650 mg PO Q6H PRN PRN Reason: Headache/Pain, Scale 1-10 Last Admin: 05/07/24 09:04 Dose: 650 mg Al Hydroxide/Mg Hydroxide (Magnesium Hydrox/Alum Hydrox 30 Ml Oral.Susp) 30 ml PO Q6H PRN PRN Reason: Heartburn/Nausea Benztropine Mesylate (Benztropine Mesylate 0.5 Mg Tablet) 0.5 mg PO TID PRN PRN Reason: Extrapyramidal Effects Hydroxyzine HCl (Hydroxyzine Hcl 25 Mg Tablet) 25 mg PO Q6H PRN PRN Reason: mild anxiety Last Admin: 05/10/24 20:26 Dose: 25 mg Ibuprofen (Ibuprofen 400 Mg Tablet) 400 mg PO Q4H PRN PRN Reason: Menstrual Cramps Lorazepam (Lorazepam 1 Mg Tablet) 1 mg PO Q4H PRN PRN Reason: anxiety/restlessness Last Admin: 05/10/24 20:27 Dose: 1 mg Magnesium Hydroxide (Milk Of Magnesia 30 Ml Oral.Susp) 30 ml PO DAILY PRN PRN Reason: Constipation Nicotine Polacrilex (Nicotine Polacrilex 2 Mg Gum) 4 mg BUCCAL Q2H PRN PRN Reason: Nicotine Cravings Olanzapine (Olanzapine Odt 10 Mg Tab.Rapdis) 10 mg TRANSLINGU BID PRN PRN Reason: agitation, violence, psychosis Last Admin: 05/08/24 11:57 Dose: 10 mg Quetiapine Fumarate (Quetiapine Fumarate 25 Mg Tablet) 25 mg PO TID PRN PRN Reason: psychosis Risperidone (Risperidone 0.5 Mg Tablet) 1.5 mg PO BID [facility] Last Admin: 05/11/24 08:53 Dose: 1.5 mg Thiamine HCl (Thiamine Hcl 100 Mg Tablet) 100 mg PO DAILY [facility] Last Admin: 05/11/24 08:53 Dose: 100 mg Trazodone HCl (Trazodone Hcl 50 Mg Tablet) 50 mg PO BEDTIME MRX1 PRN PRN Reason: Insomnia Allergies Allergies Allergy/AdvReac Type Severity Reaction Status Date / Time No Known Allergies Allergy Verified 05/05/24 01:23 Assessment & Plan Assessment & Plan (1) Psychosis: Status: Acute Code(s): F29 - Unspecified psychosis not due to a substance or known physiological condition (2) Alcohol abuse: Status: Acute Code(s): F10.10 - Alcohol abuse, uncomplicated Plan Admit, CV, 15 minute checks Diagnostics to evaluate current sx. Declines meds at this time. Will continue to address Collateral Contact Encourage milieu involvement Discharge planning. 05/07/24: Continue Risperdal Pt refuses a mood stabilizer at this time. 05/08: Continue Risperdal Pt continues to refuse a mood stabilizer TDN 05/11, probable Section 7 05/09- disorganized thoughts hard to follow, wrote for saul for complaints ? eps- 05/10 - disorganized thoughts, mildly labile affect, confused- upset- does not appear stable for dc- prn kevin written though she has prn of olanzapine - wonder about inc risperidone but couldn't have discussion of that as she was so thrown off by samano warning and idea of court - 05/11- Refuses med changes. TDN 05/13. Reason for continued inpatient stay Substantial Risk for: rapid decompensation Time Spent With Patient Time: Total time managing care of this patient today ____ minutes.
[2024-05-11 20:00] VITALS: BP 117/63; PULSE 71; RESP 16; TEMP 36.6; O2SAT 99
[2024-05-11] MEDS: Nicotine Polacrilex 2 MG GUM 4 MG BUCCAL (21:36)
[2024-05-11] MEDS: LORazepam 1 MG TABLET PO (21:43)
[2024-05-12 08:00] VITALS: BP 100/58; PULSE 82; RESP 18; TEMP 36.2; O2SAT 96
[2024-05-12] MEDS: risperiDONE 0.5 MG TABLET 1.5 MG PO (09:16)
[2024-05-12] MEDS: Thiamine HCL 100 MG TABLET PO (09:16)
[2024-05-12] MEDS: Ibuprofen 400 MG TABLET PO (09:20)
[2024-05-12 12:47] LABS: Influenza A PCR NEGATIVE (Negative); Influenza B PCR NEGATIVE (Negative); Resp Syncy Virus RNA Qual PCR NEGATIVE (Negative); SARS COV2 PCR INHOUSE NEGATIVE (Negative)
--- NOTE | 2024-05-12 16:35 | P.PNPSI_ITS ---
Subjective Subjective Date of Service: 05/12/24 Reason For Visit: Adjustment Disorder, Mixed with anxiety & depress Subjective Notes: 3 Day Healthcare Proxy: No Guardianship: No Medical Problems Affecting Mental Status: No Interim History: [place] retracted, refiled to 05/15. I am not dangerous I am locked in, the building stays alive and takes my energy. Reports under her arms are swollen, sore. Declines intervention. Disagrees with medications. States she is doing this for her family. States mom thought she sounded calmer. Did discuss seeing a supervisor wash house, however wanting this to occur immediately. Wants to leave on Saturday, states her father can transport her. Plans to return to [place] to retrieve her bike, then make her way. Improvement noted, however, titration will help. She states she will allow. Medication Compliance: Yes Side effects from medications: Yes (sedation) Attending Groups: Intermittent Review of Systems Review of Systems reports swollen glands. Mental Status Exam Mental Status Exam Patient Appearance: Disheveled Patient Orientation: Person, Place and Situation Level of Consciousness: Alert Patient Behavior: Talkative and Good Eye Contact Mood Description: Constricted Affect Description: Constricted Ability to Follow Directions: Good Speech Pattern: Spontaneous Speech Memory Description: Episodic Impaired Delusions: Paranoid Ideation, Present and Ideas of Reference Perceptual Disturbances: Derealization Thought Process: Illogical and Distracted Thought Content: positive for Flight of Ideas, positive for Circumstantial, positive for Perseveration, positive for Preoccupation, positive for Tangential, positive for Suicidal Ideation (denies) and positive for Homicidal Ideation (denies) Depressive Symptoms: Increased Anxiety and Thoughts of /Suicide (denies) Abnormal Motor Activity Signs and Symptoms: Restlessness Judgement: Poor Diagnostics Vital Signs (24Hr): Vital Signs - 24 hr 05/11/24 20:00 05/12/24 08:00 Temperature 97.9 F 97.2 F Pulse Rate 71 82 Respiratory Rate 16 18 Blood Pressure 117/63 100/58 L Pulse Oximetry 99 96 Oxygen Delivery Method Room Air Room Air BMI result Body Mass Index 29.9 Labs Labs: Laboratory Results - last 48 hr 05/12/24 11:36 Influenza Type A (PCR) NEGATIVE Influenza Type B (PCR) NEGATIVE RSV RNA Qual (PCR) NEGATIVE SARS-CoV-2 RNA (RT-PCR) NEGATIVE Imaging Radiology Impressions: ITS Impressions Head CT 05/05/24 11:31 IMPRESSION: No acute intracranial hemorrhage or acute brain abnormality. Traumatic deformities nasal bones likely old. Probable small sebaceous cyst, right parotid compartment. . Electronically signed by: Dagoberto Ku MD 05/05/2024 12:06 PM EDT Medications Medications Current Medications Acetaminophen (Acetaminophen 325 Mg Tablet) 650 mg PO Q6H PRN PRN Reason: Headache/Pain, Scale 1-10 Last Admin: 05/07/24 09:04 Dose: 650 mg Al Hydroxide/Mg Hydroxide (Magnesium Hydrox/Alum Hydrox 30 Ml Oral.Susp) 30 ml PO Q6H PRN PRN Reason: Heartburn/Nausea Benztropine Mesylate (Benztropine Mesylate 0.5 Mg Tablet) 0.5 mg PO TID PRN PRN Reason: Extrapyramidal Effects Hydroxyzine HCl (Hydroxyzine Hcl 25 Mg Tablet) 25 mg PO Q6H PRN PRN Reason: mild anxiety Last Admin: 05/10/24 20:26 Dose: 25 mg Ibuprofen (Ibuprofen 400 Mg Tablet) 400 mg PO Q4H PRN PRN Reason: Menstrual Cramps Last Admin: 05/12/24 09:20 Dose: 400 mg Lorazepam (Lorazepam 1 Mg Tablet) 1 mg PO Q4H PRN PRN Reason: anxiety/restlessness Last Admin: 05/11/24 21:43 Dose: 1 mg Magnesium Hydroxide (Milk Of Magnesia 30 Ml Oral.Susp) 30 ml PO DAILY PRN PRN Reason: Constipation Nicotine Polacrilex (Nicotine Polacrilex 2 Mg Gum) 4 mg BUCCAL Q2H PRN PRN Reason: Nicotine Cravings Last Admin: 05/11/24 21:36 Dose: 4 mg Olanzapine (Olanzapine Odt 10 Mg Tab.Rapdis) 10 mg TRANSLINGU BID PRN PRN Reason: agitation, violence, psychosis Last Admin: 05/08/24 11:57 Dose: 10 mg Quetiapine Fumarate (Quetiapine Fumarate 25 Mg Tablet) 25 mg PO TID PRN PRN Reason: psychosis Risperidone (Risperidone 0.5 Mg Tablet) 1.5 mg PO BID [facility]IP Last Admin: 05/12/24 09:16 Dose: 1.5 mg Thiamine HCl (Thiamine Hcl 100 Mg Tablet) 100 mg PO DAILY [facility] Last Admin: 05/12/24 09:16 Dose: 100 mg Trazodone HCl (Trazodone Hcl 50 Mg Tablet) 50 mg PO BEDTIME MRX1 PRN PRN Reason: Insomnia Allergies Allergies Allergy/AdvReac Type Severity Reaction Status Date / Time No Known Allergies Allergy Verified 05/05/24 01:23 Assessment & Plan Assessment & Plan (1) Psychosis: Status: Acute Code(s): F29 - Unspecified psychosis not due to a substance or known physiological condition (2) Alcohol abuse: Status: Acute Code(s): F10.10 - Alcohol abuse, uncomplicated Plan Admit, CV, 15 minute checks Diagnostics to evaluate current sx. Declines meds at this time. Will continue to address Collateral Contact Encourage milieu involvement Discharge planning. 05/07/24: Continue Risperdal Pt refuses a mood stabilizer at this time. 05/08: Continue Risperdal Pt continues to refuse a mood stabilizer TDN 05/11, probable Section 7 05/09- disorganized thoughts hard to follow, wrote for cogentin for complaints ? eps- 05/10 - disorganized thoughts, mildly labile affect, confused- upset- does not appear stable for dc- prn seroquel written though she has prn of olanzapine - wonder about inc risperidone but couldn't have discussion of that as she was so thrown off by samano warning and idea of court - 05/12- Increase Risperdal to 2 mg bid Reason for continued inpatient stay Substantial Risk for: rapid decompensation Time Spent With Patient Time: Total time managing care of this patient today ____ minutes.
[2024-05-12] MEDS: OLANZapine ODT 10 MG TAB.RAPDIS TRANSLINGU (19:31)
[2024-05-12] MEDS: LORazepam 1 MG TABLET PO (19:35)
[2024-05-12 20:00] VITALS: BP 123/77; PULSE 92; RESP 20; TEMP 36.4; O2SAT 95
[2024-05-12] MEDS: hydrOXYzine HCL 25 MG TABLET PO (20:49)
[2024-05-12] MEDS: QUEtiapine Fumarate 25 MG TABLET PO (20:49)
[2024-05-12] MEDS: risperiDONE 2 MG TABLET PO (20:49)
[2024-05-13 08:10] VITALS: BP 100/52; PULSE 67; TEMP 36.4; O2SAT 97
[2024-05-13] MEDS: risperiDONE 2 MG TABLET PO ×2 (08:56→20:45)
[2024-05-13] MEDS: Thiamine HCL 100 MG TABLET PO (08:56)
--- NOTE | 2024-05-13 09:50 | HO.PSYCHPN ---
Subjective Subjective Date of Service: 05/13/24 Reason For Visit: Adjustment Disorder, Mixed with anxiety & depress Subjective Notes: Conditional Voluntary and 3 Day Healthcare Proxy: No Guardianship: No Medical Problems Affecting Mental Status: No Interim History: Pt reports feeling improved. She reports she is considering remaining for ongoing treatment but is torn as she wants to continue her journey back toward [facility]. She is visable in the milieu, napping at times and reports that medicine has no correlation to how she is feeling as they are useless . Living life is how to improve one's mental health. Medication Compliance: Yes Side effects from medications: No Attending Groups: Intermittent Review of Systems Acute medical concerns: No Review of Systems Review of Systems Denies Mental Status Exam Mental Status Exam Patient Appearance: Disheveled Patient Orientation: Person, Place and Situation Level of Consciousness: Alert Patient Behavior: Talkative and Good Eye Contact Mood Description: Constricted Affect Description: Constricted Ability to Follow Directions: Good Speech Pattern: Spontaneous Speech Memory Description: Episodic Impaired Delusions: Paranoid Ideation, Present and Ideas of Reference Perceptual Disturbances: Derealization Thought Process: Illogical and Distracted Thought Content: positive for Flight of Ideas, positive for Circumstantial, positive for Perseveration, positive for Preoccupation, positive for Tangential, positive for Suicidal Ideation (denies) and positive for Homicidal Ideation (denies) Depressive Symptoms: Increased Anxiety and Thoughts of /Suicide (denies) Abnormal Motor Activity Signs and Symptoms: Restlessness Judgement: Poor Diagnostics Vital Signs (24Hr): Vital Signs - 24 hr 05/12/24 20:00 05/13/24 08:10 Temperature 97.6 F 97.6 F Pulse Rate 92 67 Respiratory Rate 20 Blood Pressure 123/77 100/52 L Pulse Oximetry 95 97 Oxygen Delivery Method Room Air Room Air BMI result Body Mass Index 29.9 Labs Labs: Laboratory Results - last 48 hr 05/12/24 11:36 Influenza Type A (PCR) NEGATIVE Influenza Type B (PCR) NEGATIVE RSV RNA Qual (PCR) NEGATIVE SARS-CoV-2 RNA (RT-PCR) NEGATIVE Imaging Radiology Impressions: ITS Impressions Head CT 05/05/24 11:31 IMPRESSION: No acute intracranial hemorrhage or acute brain abnormality. Traumatic deformities nasal bones likely old. Probable small sebaceous cyst, right parotid compartment. . Electronically signed by: Dagoberto Ku MD 05/05/2024 12:06 PM EDT Medications Medications Current Medications Acetaminophen (Acetaminophen 325 Mg Tablet) 650 mg PO Q6H PRN PRN Reason: Headache/Pain, Scale 1-10 Last Admin: 05/07/24 09:04 Dose: 650 mg Al Hydroxide/Mg Hydroxide (Magnesium Hydrox/Alum Hydrox 30 Ml Oral.Susp) 30 ml PO Q6H PRN PRN Reason: Heartburn/Nausea Benztropine Mesylate (Benztropine Mesylate 0.5 Mg Tablet) 0.5 mg PO TID PRN PRN Reason: Extrapyramidal Effects Hydroxyzine HCl (Hydroxyzine Hcl 25 Mg Tablet) 25 mg PO Q6H PRN PRN Reason: mild anxiety Last Admin: 05/12/24 20:49 Dose: 25 mg Ibuprofen (Ibuprofen 400 Mg Tablet) 400 mg PO Q4H PRN PRN Reason: Menstrual Cramps Last Admin: 05/12/24 09:20 Dose: 400 mg Lorazepam (Lorazepam 1 Mg Tablet) 1 mg PO Q4H PRN PRN Reason: anxiety/restlessness Last Admin: 05/12/24 19:35 Dose: 1 mg Magnesium Hydroxide (Milk Of Magnesia 30 Ml Oral.Susp) 30 ml PO DAILY PRN PRN Reason: Constipation Nicotine Polacrilex (Nicotine Polacrilex 2 Mg Gum) 4 mg BUCCAL Q2H PRN PRN Reason: Nicotine Cravings Last Admin: 05/11/24 21:36 Dose: 4 mg Olanzapine (Olanzapine Odt 10 Mg Tab.Rapdis) 10 mg TRANSLINGU BID PRN PRN Reason: agitation, violence, psychosis Last Admin: 05/12/24 19:31 Dose: 10 mg Quetiapine Fumarate (Quetiapine Fumarate 25 Mg Tablet) 25 mg PO TID PRN PRN Reason: psychosis Last Admin: 05/12/24 20:49 Dose: 25 mg Risperidone (Risperidone 2 Mg Tablet) 2 mg PO BID [facility]ILLIP Last Admin: 05/13/24 08:56 Dose: 2 mg Thiamine HCl (Thiamine Hcl 100 Mg Tablet) 100 mg PO DAILY [facility]IP Last Admin: 05/13/24 08:56 Dose: 100 mg Trazodone HCl (Trazodone Hcl 50 Mg Tablet) 50 mg PO BEDTIME MRX1 PRN PRN Reason: Insomnia Allergies Allergies Allergy/AdvReac Type Severity Reaction Status Date / Time No Known Allergies Allergy Verified 05/05/24 01:23 Assessment & Plan Assessment & Plan (1) Psychosis: Status: Acute Code(s): F29 - Unspecified psychosis not due to a substance or known physiological condition (2) Alcohol abuse: Status: Acute Code(s): F10.10 - Alcohol abuse, uncomplicated Plan Admit, CV, 15 minute checks Diagnostics to evaluate current sx. Declines meds at this time. Will continue to address Collateral Contact Encourage milieu involvement Discharge planning. 05/07/24: Continue Risperdal Pt refuses a mood stabilizer at this time. 05/08: Continue Risperdal Pt continues to refuse a mood stabilizer TDN 05/11, probable Section 7 05/09- disorganized thoughts hard to follow, wrote for cogentin for complaints ? eps- 05/10 - disorganized thoughts, mildly labile affect, confused- upset- does not appear stable for dc- prn seroquel written though she has prn of olanzapine - wonder about inc risperidone but couldn't have discussion of that as she was so thrown off by samano warning and idea of court - 05/12- Increase Risperdal to 2 mg bid 05/13- Continue tx Reason for continued inpatient stay Substantial Risk for: rapid decompensation Time Spent With Patient Time: Total time managing care of this patient today ____ minutes.
[2024-05-13 20:25] VITALS: BP 132/58; PULSE 93; RESP 16; TEMP 36.2; O2SAT 98
[2024-05-13] MEDS: hydrOXYzine HCL 25 MG TABLET PO (20:45)
[2024-05-13] MEDS: QUEtiapine Fumarate 25 MG TABLET PO (20:45)
[2024-05-14 07:00] VITALS: BMI 30.1
[2024-05-14 08:00] VITALS: BP 121/70; PULSE 63; RESP 16; TEMP 36.4; O2SAT 99
[2024-05-14] MEDS: risperiDONE 2 MG TABLET PO ×2 (09:03→20:19)
[2024-05-14] MEDS: Thiamine HCL 100 MG TABLET PO (09:04)
--- NOTE | 2024-05-14 12:19 | HO.PSYCHPN ---
Subjective Subjective Date of Service: 05/14/24 Reason For Visit: Adjustment Disorder, Mixed with anxiety & depress Subjective Notes: Conditional Voluntary and 3 Day Healthcare Proxy: No Guardianship: No Medical Problems Affecting Mental Status: No Interim History: Discussed discharge planning. Will continue Risperdal. Plans to return for her bike in [place] and make her way toward [place], where family is for the summer. Agreeable to follow up with [facility]. Has asked her father to provide a ride to [place]. He agreed but may not follow through. Clear, non psychotic, goal oriented. Recent med increase has been useful. Medication Compliance: Yes Side effects from medications: No Attending Groups: Intermittent Review of Systems Acute medical concerns: No Review of Systems Review of Systems Denies Mental Status Exam Mental Status Exam Patient Appearance: Appropriate Patient Orientation: Person, Place, Time and Situation Level of Consciousness: Alert Patient Behavior: Talkative, Cooperative and Good Eye Contact Mood Description: Appropriate Affect Description: Appropriate and Apprehensive Patient Cognition Impaired: No Ability to Follow Directions: Good Speech Pattern: Spontaneous Speech Memory Description: Episodic Impaired Hallucinations: None Delusions: Not Present Thought Process: Intact and Goal Oriented Thought Content: positive for Intact, positive for Circumstantial, positive for Goal Oriented, positive for Suicidal Ideation (denies) and positive for Homicidal Ideation (denies) Depressive Symptoms: Thoughts of /Suicide (denies) Judgement: Good Diagnostics Vital Signs (24Hr): Vital Signs - 24 hr 05/13/24 20:25 05/14/24 08:00 Temperature 97.1 F 97.5 F Pulse Rate 93 63 Respiratory Rate 16 16 Blood Pressure 132/58 L 121/70 Pulse Oximetry 98 99 Oxygen Delivery Method Room Air Room Air BMI result Body Mass Index 30.1 Labs Labs: Laboratory Results - last 48 hr 05/12/24 11:36 Influenza Type A (PCR) NEGATIVE Influenza Type B (PCR) NEGATIVE RSV RNA Qual (PCR) NEGATIVE SARS-CoV-2 RNA (RT-PCR) NEGATIVE Imaging Radiology Impressions: ITS Impressions Head CT 05/05/24 11:31 IMPRESSION: No acute intracranial hemorrhage or acute brain abnormality. Traumatic deformities nasal bones likely old. Probable small sebaceous cyst, right parotid compartment. . Electronically signed by: Dagoberto Ku MD 05/05/2024 12:06 PM EDT Medications Medications Current Medications Acetaminophen (Acetaminophen 325 Mg Tablet) 650 mg PO Q6H PRN PRN Reason: Headache/Pain, Scale 1-10 Last Admin: 05/07/24 09:04 Dose: 650 mg Al Hydroxide/Mg Hydroxide (Magnesium Hydrox/Alum Hydrox 30 Ml Oral.Susp) 30 ml PO Q6H PRN PRN Reason: Heartburn/Nausea Benztropine Mesylate (Benztropine Mesylate 0.5 Mg Tablet) 0.5 mg PO TID PRN PRN Reason: Extrapyramidal Effects Hydroxyzine HCl (Hydroxyzine Hcl 25 Mg Tablet) 25 mg PO Q6H PRN PRN Reason: mild anxiety Last Admin: 05/13/24 20:45 Dose: 25 mg Ibuprofen (Ibuprofen 400 Mg Tablet) 400 mg PO Q4H PRN PRN Reason: Menstrual Cramps Last Admin: 05/12/24 09:20 Dose: 400 mg Lorazepam (Lorazepam 1 Mg Tablet) 1 mg PO Q4H PRN PRN Reason: anxiety/restlessness Last Admin: 05/12/24 19:35 Dose: 1 mg Magnesium Hydroxide (Milk Of Magnesia 30 Ml Oral.Susp) 30 ml PO DAILY PRN PRN Reason: Constipation Nicotine Polacrilex (Nicotine Polacrilex 2 Mg Gum) 4 mg BUCCAL Q2H PRN PRN Reason: Nicotine Cravings Last Admin: 05/11/24 21:36 Dose: 4 mg Olanzapine (Olanzapine Odt 10 Mg Tab.Rapdis) 10 mg TRANSLINGU BID PRN PRN Reason: agitation, violence, psychosis Last Admin: 05/12/24 19:31 Dose: 10 mg Quetiapine Fumarate (Quetiapine Fumarate 25 Mg Tablet) 25 mg PO TID PRN PRN Reason: psychosis Last Admin: 05/13/24 20:45 Dose: 25 mg Risperidone (Risperidone 2 Mg Tablet) 2 mg PO BID [facility]ILLIP Last Admin: 05/14/24 09:03 Dose: 2 mg Thiamine HCl (Thiamine Hcl 100 Mg Tablet) 100 mg PO DAILY [facility] Last Admin: 05/14/24 09:04 Dose: 100 mg Trazodone HCl (Trazodone Hcl 50 Mg Tablet) 50 mg PO BEDTIME MRX1 PRN PRN Reason: Insomnia Allergies Allergies Allergy/AdvReac Type Severity Reaction Status Date / Time No Known Allergies Allergy Verified 05/05/24 01:23 Assessment & Plan Assessment & Plan (1) Psychosis: Status: Acute Code(s): F29 - Unspecified psychosis not due to a substance or known physiological condition (2) Alcohol abuse: Status: Acute Code(s): F10.10 - Alcohol abuse, uncomplicated Plan Admit, CV, 15 minute checks Diagnostics to evaluate current sx. Declines meds at this time. Will continue to address Collateral Contact Encourage milieu involvement Discharge planning. 05/07/24: Continue Risperdal Pt refuses a mood stabilizer at this time. 05/08: Continue Risperdal Pt continues to refuse a mood stabilizer TDN 05/11, probable Section 7 05/09- disorganized thoughts hard to follow, wrote for cogentin for complaints ? eps- 05/10 - disorganized thoughts, mildly labile affect, confused- upset- does not appear stable for dc- prn seroquel written though she has prn of olanzapine - wonder about inc risperidone but couldn't have discussion of that as she was so thrown off by samano warning and idea of court - 05/12- Increase Risperdal to 2 mg bid 05/13- Continue tx 05/14- DC 05/16 Reason for continued inpatient stay Substantial Risk for: stable for discharge Time Spent With Patient Time: Total time managing care of this patient today ____ minutes.
[2024-05-14 20:16] VITALS: BP 125/68; PULSE 69; TEMP 36.5; O2SAT 97
[2024-05-14] MEDS: hydrOXYzine HCL 25 MG TABLET PO (20:19)
[2024-05-15 08:00] VITALS: BP 117/56; PULSE 74; RESP 16; TEMP 36.4; O2SAT 97
[2024-05-15] MEDS: risperiDONE 2 MG TABLET PO ×2 (08:56→21:00)
[2024-05-15] MEDS: Thiamine HCL 100 MG TABLET PO (08:56)
--- NOTE | 2024-05-15 16:22 | P.PNPSI_ITS ---
Subjective Subjective Date of Service: 05/15/24 Reason For Visit: Adjustment Disorder, Mixed with anxiety & depress Subjective Notes: Conditional Voluntary and 3 Day (retracted) Healthcare Proxy: No Guardianship: No Medical Problems Affecting Mental Status: No Interim History: Plans DC for 05/16. TDN retracted. Father will not provide assistance. He is not available today when called by pt or team. Pt will take the bus to [place]. No change in her plans from 05/15. No SI,HI,AH,VH. No sx of acute teresita or psychosis. Risperdal Rx received by [facility] pharmacy. Discussed with pt that she is welcome to remain on the unit and continue treatment should she have a change in her plan. She declines at this time. Medication Compliance: Yes Side effects from medications: No Attending Groups: Intermittent Review of Systems Acute medical concerns: No Review of Systems Review of Systems Denies Mental Status Exam Mental Status Exam Narrative: Disappointed her father has become unavailable, however would like to continue with her plan to go to [place], obtain her bike and begin her journey to her home area in the [facility]. Patient Appearance: Appropriate Patient Orientation: Person, Place, Time and Situation Level of Consciousness: Alert Patient Behavior: Talkative, Cooperative and Good Eye Contact Mood Description: Appropriate Affect Description: Appropriate and Apprehensive Patient Cognition Impaired: No Ability to Follow Directions: Good Speech Pattern: Spontaneous Speech Memory Description: Episodic Impaired Hallucinations: None Delusions: Not Present Thought Process: Intact and Goal Oriented Thought Content: positive for Intact, positive for Circumstantial, positive for Goal Oriented, positive for Suicidal Ideation (denies) and positive for Homicidal Ideation (denies) Depressive Symptoms: Thoughts of /Suicide (denies) Judgement: Good Diagnostics Vital Signs (24Hr): Vital Signs - 24 hr 05/14/24 20:16 05/15/24 08:00 Temperature 97.7 F 97.6 F Pulse Rate 69 74 Respiratory Rate 16 Blood Pressure 125/68 117/56 L Pulse Oximetry 97 97 Oxygen Delivery Method Room Air BMI result Body Mass Index 30.1 Imaging Radiology Impressions: ITS Impressions Head CT 05/05/24 11:31 IMPRESSION: No acute intracranial hemorrhage or acute brain abnormality. Traumatic deformities nasal bones likely old. Probable small sebaceous cyst, right parotid compartment. . Electronically signed by: Dagoberto Ku MD 05/05/2024 12:06 PM EDT RP Medications Medications Current Medications Acetaminophen (Acetaminophen 325 Mg Tablet) 650 mg PO Q6H PRN PRN Reason: Headache/Pain, Scale 1-10 Last Admin: 05/07/24 09:04 Dose: 650 mg Al Hydroxide/Mg Hydroxide (Magnesium Hydrox/Alum Hydrox 30 Ml Oral.Susp) 30 ml PO Q6H PRN PRN Reason: Heartburn/Nausea Benztropine Mesylate (Benztropine Mesylate 0.5 Mg Tablet) 0.5 mg PO TID PRN PRN Reason: Extrapyramidal Effects Hydroxyzine HCl (Hydroxyzine Hcl 25 Mg Tablet) 25 mg PO Q6H PRN PRN Reason: mild anxiety Last Admin: 05/14/24 20:19 Dose: 25 mg Ibuprofen (Ibuprofen 400 Mg Tablet) 400 mg PO Q4H PRN PRN Reason: Menstrual Cramps Last Admin: 05/12/24 09:20 Dose: 400 mg Lorazepam (Lorazepam 1 Mg Tablet) 1 mg PO Q4H PRN PRN Reason: anxiety/restlessness Last Admin: 05/12/24 19:35 Dose: 1 mg Magnesium Hydroxide (Milk Of Magnesia 30 Ml Oral.Susp) 30 ml PO DAILY PRN PRN Reason: Constipation Nicotine Polacrilex (Nicotine Polacrilex 2 Mg Gum) 4 mg BUCCAL Q2H PRN PRN Reason: Nicotine Cravings Last Admin: 05/11/24 21:36 Dose: 4 mg Olanzapine (Olanzapine Odt 10 Mg Tab.Rapdis) 10 mg TRANSLINGU BID PRN PRN Reason: agitation, violence, psychosis Last Admin: 05/12/24 19:31 Dose: 10 mg Quetiapine Fumarate (Quetiapine Fumarate 25 Mg Tablet) 25 mg PO TID PRN PRN Reason: psychosis Last Admin: 05/13/24 20:45 Dose: 25 mg Risperidone (Risperidone 2 Mg Tablet) 2 mg PO BID PHILLIP Last Admin: 05/15/24 08:56 Dose: 2 mg Thiamine HCl (Thiamine Hcl 100 Mg Tablet) 100 mg PO DAILY PHILLIP Last Admin: 05/15/24 08:56 Dose: 100 mg Trazodone HCl (Trazodone Hcl 50 Mg Tablet) 50 mg PO BEDTIME MRX1 PRN PRN Reason: Insomnia Allergies Allergies Allergy/AdvReac Type Severity Reaction Status Date / Time No Known Allergies Allergy Verified 05/05/24 01:23 Assessment & Plan Assessment & Plan (1) Psychosis: Status: Acute Code(s): F29 - Unspecified psychosis not due to a substance or known physiological condition (2) Alcohol abuse: Status: Acute Code(s): F10.10 - Alcohol abuse, uncomplicated Plan Admit, CV, 15 minute checks Diagnostics to evaluate current sx. Declines meds at this time. Will continue to address Collateral Contact Encourage milieu involvement Discharge planning. 05/07/24: Continue Risperdal Pt refuses a mood stabilizer at this time. 05/08: Continue Risperdal Pt continues to refuse a mood stabilizer TDN 05/11, probable Section 7 05/09- disorganized thoughts hard to follow, wrote for cogentin for complaints ? eps- 05/10 - disorganized thoughts, mildly labile affect, confused- upset- does not appear stable for dc- prn seroquel written though she has prn of olanzapine - wonder about inc risperidone but couldn't have discussion of that as she was so thrown off by samano warning and idea of court - 05/12- Increase Risperdal to 2 mg bid 05/13- Continue tx 05/15- DC 05/16 Reason for continued inpatient stay Substantial Risk for: stable for discharge Time Spent With Patient Time: Total time managing care of this patient today ____ minutes.
[2024-05-15 19:50] VITALS: BP 104/62; PULSE 84; TEMP 36.8; O2SAT 99
[2024-05-15] MEDS: hydrOXYzine HCL 25 MG TABLET PO (21:00)
[2024-05-16 07:41] VITALS: BP 113/60; PULSE 69; RESP 16; TEMP 36.8; O2SAT 98
[2024-05-16] MEDS: risperiDONE 2 MG TABLET PO (08:37)
[2024-05-16] MEDS: Thiamine HCL 100 MG TABLET PO (08:37)
--- NOTE | 2024-05-16 09:56 | HO.PSYCHPN ---
Subjective Subjective Date of Service: 05/16/24 Reason For Visit: Adjustment Disorder, Mixed with anxiety & depress Interim History: met with pt; discussed with team; reviewed chart pt says she wants to go; she is excited to discharge and happy to learn the Bus is free, her plan to go to [place] to get her belongings. She denies any SI/HI and says i'm independent and can take care of my self. She is thankful for help received on unit but says she's ready to go. pt declined offers to remain and wants to dc on her planned discharge for today Mental Status Exam Mental Status Exam Narrative: Disappointed her father has become unavailable, however would like to continue with her plan to go to [place], obtain her bike and begin her journey to her home area in the [facility]. Patient Appearance: Appropriate Patient Orientation: Person, Place, Time and Situation Level of Consciousness: Alert Patient Behavior: Talkative, Cooperative and Good Eye Contact Mood Description: Appropriate ( it is what it is ) Affect Description: Appropriate and Apprehensive Patient Cognition Impaired: No Ability to Follow Directions: Good Speech Pattern: Spontaneous Speech Memory Description: Episodic Impaired Thought Process: Goal Oriented Thought Content: positive for Intact, positive for Circumstantial, positive for Goal Oriented, positive for Suicidal Ideation (denies) and positive for Homicidal Ideation (denies) Depressive Symptoms: Thoughts of /Suicide (denies) Judgement and Insight: adequate Diagnostics Vital Signs (24Hr): Vital Signs - 24 hr 05/15/24 19:50 05/16/24 07:41 Temperature 98.2 F 98.2 F Pulse Rate 84 69 Respiratory Rate 16 Blood Pressure 104/62 113/60 Pulse Oximetry 99 98 Oxygen Delivery Method Room Air Room Air BMI result Body Mass Index 30.1 Imaging Radiology Impressions: ITS Impressions Head CT 05/05/24 11:31 IMPRESSION: No acute intracranial hemorrhage or acute brain abnormality. Traumatic deformities nasal bones likely old. Probable small sebaceous cyst, right parotid compartment. . Electronically signed by: Dagoberto Ku MD 05/05/2024 12:06 PM EDT Medications Medications Current Medications Acetaminophen (Acetaminophen 325 Mg Tablet) 650 mg PO Q6H PRN PRN Reason: Headache/Pain, Scale 1-10 Last Admin: 05/07/24 09:04 Dose: 650 mg Al Hydroxide/Mg Hydroxide (Magnesium Hydrox/Alum Hydrox 30 Ml Oral.Susp) 30 ml PO Q6H PRN PRN Reason: Heartburn/Nausea Benztropine Mesylate (Benztropine Mesylate 0.5 Mg Tablet) 0.5 mg PO TID PRN PRN Reason: Extrapyramidal Effects Hydroxyzine HCl (Hydroxyzine Hcl 25 Mg Tablet) 25 mg PO Q6H PRN PRN Reason: mild anxiety Last Admin: 05/15/24 21:00 Dose: 25 mg Ibuprofen (Ibuprofen 400 Mg Tablet) 400 mg PO Q4H PRN PRN Reason: Menstrual Cramps Last Admin: 05/12/24 09:20 Dose: 400 mg Lorazepam (Lorazepam 1 Mg Tablet) 1 mg PO Q4H PRN PRN Reason: anxiety/restlessness Last Admin: 05/12/24 19:35 Dose: 1 mg Magnesium Hydroxide (Milk Of Magnesia 30 Ml Oral.Susp) 30 ml PO DAILY PRN PRN Reason: Constipation Nicotine Polacrilex (Nicotine Polacrilex 2 Mg Gum) 4 mg BUCCAL Q2H PRN PRN Reason: Nicotine Cravings Last Admin: 05/11/24 21:36 Dose: 4 mg Olanzapine (Olanzapine Odt 10 Mg Tab.Rapdis) 10 mg TRANSLINGU BID PRN PRN Reason: agitation, violence, psychosis Last Admin: 05/12/24 19:31 Dose: 10 mg Quetiapine Fumarate (Quetiapine Fumarate 25 Mg Tablet) 25 mg PO TID PRN PRN Reason: psychosis Last Admin: 05/13/24 20:45 Dose: 25 mg Risperidone (Risperidone 2 Mg Tablet) 2 mg PO BID PHILLIP Last Admin: 05/16/24 08:37 Dose: 2 mg Thiamine HCl (Thiamine Hcl 100 Mg Tablet) 100 mg PO DAILY PHILLIP Last Admin: 05/16/24 08:37 Dose: 100 mg Trazodone HCl (Trazodone Hcl 50 Mg Tablet) 50 mg PO BEDTIME MRX1 PRN PRN Reason: Insomnia Allergies Allergies Allergy/AdvReac Type Severity Reaction Status Date / Time No Known Allergies Allergy Verified 05/05/24 01:23 Assessment & Plan Assessment & Plan (1) Psychosis: Status: Acute Code(s): F29 - Unspecified psychosis not due to a substance or known physiological condition (2) Alcohol abuse: Status: Acute Code(s): F10.10 - Alcohol abuse, uncomplicated Plan Admit, CV, 15 minute checks Diagnostics to evaluate current sx. Declines meds at this time. Will continue to address Collateral Contact Encourage milieu involvement Discharge planning. 05/07/24: Continue Risperdal Pt refuses a mood stabilizer at this time. 05/08: Continue Risperdal Pt continues to refuse a mood stabilizer TDN 05/11, probable Section 7 05/09- disorganized thoughts hard to follow, wrote for saul for complaints ? eps- 05/10 - disorganized thoughts, mildly labile affect, confused- upset- does not appear stable for dc- prn seroquel written though she has prn of olanzapine - wonder about inc risperidone but couldn't have discussion of that as she was so thrown off by samano warning and idea of court - 05/12- Increase Risperdal to 2 mg bid 05/13- Continue tx 05/15- DC 05/16 05/16 pt says she wants to go; she is excited to discharge and happy to learn the Bus is free, her plan to go to [place] to get her belongings. She denies any SI/HI and says i'm independent and can take care of my self. She is thankful for help received on unit but says she's ready to go. pt declined offers to remain and wants to dc on her planned discharge for today Reason for continued inpatient stay Substantial Risk for: other (proceed with planned discharge) Time Spent With Patient Time: Total time managing care of this patient today ____ minutes.
--- NOTE | 2024-05-24 15:35 | PM.PSYDC ---
DS: Providers Provider Date of Service: 05/16/24 Date of admission: 05/04/24 23:58 Date of discharge: 05/16/24 Primary care physician: Unknown Physician Admitting clinician: Aura Soni Attending physician on admission: Angel Luis Del Rio Consults: 05/05/24 01:50 Consult to Hospitalist Routine Comment: Consulting Provider: [facility] Reason For Exam: OSH admission 05/05/24 11:02 Addiction Medicine Provider Routine Consulting Provider: Addiction Covering Reason for consultation: alcohol use disorder Has provider been notified: Yes Attending physician on discharge: Angel Luis Del Rio Discharging clinician: Aura Soin DS: Diagnosis Discharge Diagnosis (1) Psychosis: Status: Resolved (2) Alcohol abuse: Status: Acute DS: Medications Discharge Medications Home Medications: Previous Rx's ?Medication ?Instructions ?Recorded risperidone 2 mg tablet 2 mg PO BID #60 tabs 05/15/24 Mental Status Exam Mental Status Exam Patient Appearance: Appropriate Patient Orientation: Person, Place, Time and Situation Level of Consciousness: Alert Patient Behavior: Talkative, Cooperative and Good Eye Contact Mood Description: Appropriate ( it is what it is ) Affect Description: Appropriate and Apprehensive Patient Cognition Impaired: No Ability to Follow Directions: Good Speech Pattern: Spontaneous Speech Memory Description: Episodic Impaired Hallucinations: None Delusions: Not Present Thought Process: Goal Oriented Thought Content: positive for Intact, positive for Circumstantial, positive for Goal Oriented, positive for Suicidal Ideation (denies) and positive for Homicidal Ideation (denies) Depressive Symptoms: Thoughts of /Suicide (denies) Judgement: Good Judgement and Insight: adequate Data Imaging Diagnostic Imaging Impressions Head CT 05/05/24 11:31 IMPRESSION: No acute intracranial hemorrhage or acute brain abnormality. Traumatic deformities nasal bones likely old. Probable small sebaceous cyst, right parotid compartment. . Electronically signed by: Dagoberto Ku MD 05/05/2024 12:06 PM EDT DS: Summary Hospital Course Hospital Course: Admission to adult psychiatry for exacerbation of schizoaffective disorder, alcohol use disorder. Pt reports a diagnosis of autism. Pt was found to be agitated in the community with psychosis and alcohol abuse and is admitted from [facility]. Pt was experiencing psychotic symptoms on admission. Medications were evaluated. Pt does not believe in taking medications, however agreed to a Risperdal trial and found it to be tolerated and useful. She plans to continue this. Pt participated in the milieu and was able to review coping skills. She was able to work with the team, experience symptom decrease, increase clarity and make a plan for discharge and a plan to return to her home area of [place], [place]. She was invited to remain in pt for a longer period of time to contiue treatment and discharge planning, however, pt declined. Status at Discharge Functional status at discharge: independent ambulation Overall status at discharge: patient is progressing back to baseline Time Spent with Patient Time attestation: Total time managing care of this patient today ____ minutes. Time spent: Less than 30 minutes Discharge Plan Discharge Anticipated Discharge Date/Time: 05/16/24 12:00 Patient Disposition: Xfer Other Discharge Diagnosis: Alcohol Use Disorder Schizoaffective Disorder Referrals: [facility] Resources [Other] - 1 Week ([facility] [phone] [place] [facility] Working [phone] Department of Transitional Assistance [phone] Social Security [phone] [facility] [phone]) [facility] Intake [Other] - 1 Week (Serving: [facility], [place], [place], [place], [facility], [place], [place], [place], and [facility] Weekday Hours Saturday: 9:00 am-5:00 pm Saturday - Saturday: 8:00 am-8:00 pm Saturday: 9:00 am-5:00 pm) Physician,Unknown J [Primary Care Provider] - 1 Week Discharge Medications: New risperidone 2 mg Tablet 2 mg PO BID Qty: 60 0RF Discharge Orders: Discharge Order (Routine); Ordered 05/16/24 Ordered By: Aura Soni Diet: Advance to usual diet Activity on Discharge: As tolerated Stand Alone Forms: Patient Portal Discharge page, Community Support Print Language: Georgian Care Plan Goals: Abstinence from alcohol, substances Mood and Behavioral Stabilization Health Concerns: Mood and Behavioral Stabilization Plan of Treatment: Pt accepts a Risperdal prescription. She does not believe in meds, however, she reports she will take this medicine. She will go to [place] to obtain her bike and continue on her journey to the [facility] where family is located and is an area she knows well. She was advised to call/return if needed and has our contact numbers She was invited to remain in treatment should she change her decision. Assessment: No SI,HI,AH,VH she reports No sx of acute teresita or psychosis Med compliance No behavioral issues observed during this admission. Discharge Date/Time: 05/16/24 10:14
== END 2024-05-16 10:14 | disposition other institution (70) | DRG 751 ==
PROVIDERS: Admitting Provider Psychiatry & Neurology Psychiatry; Visit Provider Clinical Nurse Specialist Psychiatric/Mental Health, Adult
DX: F29 Unspecified psychosis not due to a substance or known physiological condition (principal); F10.10 Alcohol abuse, uncomplicated; F43.23 Adjustment disorder with mixed anxiety and depressed mood; F84.0 Autistic disorder; G44.209 Tension-type headache, unspecified, not intractable; R03.0 Elevated blood-pressure reading, without diagnosis of hypertension; Z20.822 Contact with and (suspected) exposure to COVID-19; Z87.891 Personal history of nicotine dependence; Z79.899 Other long term (current) drug therapy
CPT/HCPCS: 0241U; 36415; 70450; 80061; 82607; 82746; 83036; 84439; 84443; 84702

== ENCOUNTER → 2024-05-04 23:58 | Outpatient (BNV) | payer OTHER, SELFPAY | PROVIDERS: Admitting Provider Psychiatry & Neurology Psychiatry; Visit Provider Clinical Nurse Specialist Psychiatric/Mental Health, Adult | DX: F29 Unspecified psychosis not due to a substance or known physiological condition (principal); F10.10 Alcohol abuse, uncomplicated | CPT/HCPCS: 99232 ==

== ENCOUNTER → 2024-05-04 23:58 | Outpatient (BNV) | payer OTHER, SELFPAY | PROVIDERS: Admitting Provider Psychiatry & Neurology Psychiatry; Visit Provider Physician Assistant | DX: Z00.8 Encounter for other general examination (principal) | CPT/HCPCS: 99429 ==